=== PATIENT | female | born 1990 ===

== ENCOUNTER 2017-08-27 14:16 | Emergency (ER) | payer BC, OTHER ==
[2017-08-27 15:38] VITALS: BP 114/86; PULSE 71; RESP 16; TEMP 98.6; O2SAT 100
[2017-08-27] MEDS ORDERED: Sodium Chloride 0.9% 1,000 ML IV STA (17:34)
--- NOTE | 2017-08-27 17:41 | ED PDOC ---
HPI: Abdomen Time Seen by Provider: 08/27/17 17:09 Chief Complaint (Nursing): Abdominal Pain Chief Complaint (Provider): Abdominal Pain History Per: Patient History/Exam Limitations: no limitations Onset/Duration Of Symptoms: Days (x3) Current Symptoms Are (Timing): Still Present Location Of Pain/Discomfort: RLQ Associated Symptoms: denies: Fever, Nausea, Vomiting, Diarrhea, Constipation, Urinary Symptoms (dysuria, hematuria) Alleviating Factors: None Additional Complaint(s): Faisal De La Torre is a 27 year old female, with no past medical history, who presents to the emergency department complaining of RLQ abdominal pain onset for x3 days. Patient denies similar symptoms in the past. No alleviating factors. She denies any fever, nausea, vomit, constipation, diarrhea, dysuria, hematuria, or vaginal bleeding. No further medical complaints. PMD: None provided. Abnormal Vaginal Bleeding: No Past Medical History Reviewed: Historical Data, Nursing Documentation, Vital Signs Vital Signs: Last Vital Signs Temp 98.6 F 08/27/17 15:35 Pulse 71 08/27/17 15:35 Resp 16 08/27/17 15:35 BP 114/86 08/27/17 15:35 Pulse Ox 100 08/27/17 22:42 - Medical History PMH: No Chronic Diseases - Surgical History Surgical History: No Surg Hx - Family History Family History: States: Unknown Family Hx - Immunization History Hx Tetanus Toxoid Vaccination: No Hx Influenza Vaccination: No Hx Pneumococcal Vaccination: No - Home Medications Home Medications: Ambulatory Orders Medication Instructions Recorded [place] 06/13/13 Diazepam [Valium] 5 mg PO Q6H PRN #15 tab 06/13/13 Ibuprofen [Motrin] 400 mg PO TID #20 tab 06/13/13 - Allergies Allergies/Adverse Reactions: Allergies Allergy/AdvReac Type Severity Reaction Status Date / Time Penicillins Allergy SWELLING Verified 08/27/17 15:35 eggplant Allergy SWELLING Uncoded 08/27/17 15:35 Review of Systems ROS Statement: Except As Marked, All Systems Reviewed And Found Negative Constitutional: Negative for: Fever Gastrointestinal: Positive for: Abdominal Pain (RLQ). Negative for: Nausea, Vomiting, Diarrhea, Constipation Genitourinary Female: Negative for: Dysuria, Hematuria, Vaginal Bleeding Physical Exam - Reviewed Nursing Documentation Reviewed: Yes Vital Signs Reviewed: Yes - Physical Exam Appears: Positive for: Non-toxic Head Exam: Positive for: ATRAUMATIC, NORMAL INSPECTION, NORMOCEPHALIC Skin: Positive for: Normal Color, Warm, Dry Eye Exam: Positive for: Normal appearance Neck: Positive for: Painless ROM, Supple Cardiovascular/Chest: Positive for: Regular Rate, Rhythm. Negative for: Murmur Respiratory: Positive for: Normal Breath Sounds (clear auscultation b/l). Negative for: Respiratory Distress Gastrointestinal/Abdominal: Positive for: Tenderness (RLQ. McBurney's point tenderness). Negative for: Guarding, Rebound Back: Positive for: Normal Inspection. Negative for: L CVA Tenderness, R CVA Tenderness, Vertebral Tenderness Extremity: Positive for: Normal ROM. Negative for: Deformity, Swelling Neurologic/Psych: Positive for: Alert, Oriented - Laboratory Results Result Diagrams: 08/27/17 18:05 08/27/17 18:05 - ECG O2 Sat by Pulse Oximetry: 100 (RA) Pulse Ox Interpretation: Normal Medical Decision Making Medical Decision Making: Initial Impression: Abdominal pain, ovarian torsion, appendicitis. Initial Plan: --Abd & Pelvis IV Contrast [CT] --CMP --Urine dipstick --Urine --CBC w/ differential --Dilaudid 0.5 mg IVP --Sodium Chloride 1,000 ml IV 1,000 mls/hr --Urinalysis --Pelvis/Transvag US --reevaluation 19:00 -Patient will be signed out to Dr. Pickett, pending CT and US. Scribe Attestation: Documented by Obi Braswell, acting as a scribe for Bailey Vides MD Provider Scribe Attestation: All medical record entries made by the Scribe were at my direction and personally dictated by me. I have reviewed the chart and agree that the record accurately reflects my personal performance of the history, physical exam, medical decision making, and the department course for this patient. I have also personally directed, reviewed, and agree with the discharge instructions and disposition. Disposition - Clinical Impression Clinical Impression: Abdominal pain, Ovarian cyst - Disposition Referrals: [facility] [Outside] Disposition Time: 19:00 Condition: STABLE Additional Instructions: Follow up with your PCP in 2-3 days. Instructions: Ovarian Cyst (ED), Abdominal Pain (ED) Forms: [facility] ED School/Work Excuse Patient Signed Over To: Teri Pickett
[2017-08-27 18:07] LABS: SQUAMOUS EPITHIAL < 1 /hpf (0-5); URINE BACTERIA OCC (<OCC); URINE BILIRUBIN NEGATIVE (NEGATIVE); URINE BLOOD NEGATIVE (NEGATIVE); URINE CLARITY TURBID (Clear); URINE COLOR YELLOW (YELLOW); URINE GLUCOSE (UA) NEG (Normal); URINE LEUKOCYTE ESTERASE NEG Leu/uL (Negative); URINE NITRATE NEGATIVE (NEGATIVE); URINE PROTEIN NEGATIVE (NEGATIVE); URINE UROBILINOGEN 0.2-1.0 mg/dL (0.2-1.0)
[2017-08-27 18:15] LABS: BASO % 0.6 % (0.0-2.0); EOS # 0.2 K/uL (0.0-0.7); HEMOGLOBIN 13.1 g/dL (12.0-16.0); LYMPH % 25.3 % (20.0-40.0); MEAN CELL VOLUME 87.4 fl (81.0-99.0); MEAN CORPUSCULAR HEMOGLOBIN 29.4 pg (27.0-31.0); MEAN CORPUSCULAR HGB CONC 33.7 g/dL (33.0-37.0); MEAN PLATELET VOLUME 9.7 fl (7.2-11.7); MONO # 0.4 K/uL (0.0-0.8); MONO % 5.5 % (0.0-10.0); NEUT # 5.1 K/uL (1.8-7.0); NEUT % 65.6 % (50.0-75.0); NRBC % 0.1 % (0.0-0.0); RBC 4.43 Mil/uL (3.80-5.20); RED CELL DISTRIBUTION WIDTH 12.5 % (11.5-14.5); WHITE BLOOD COUNT 7.8 K/uL (4.8-10.8)
[2017-08-27] MEDS ORDERED: Fluconazole 150 MG TAB PO STA (18:20)
[2017-08-27 18:26] LABS: ALB/GLOB RATIO 1.3 (1.0-2.1); ALBUMIN 4.2 g/dL (3.5-5.0); ALT/SGPT 41 U/L (9-52); AST/SGOT 29 U/L (14-36); BLOOD UREA NITROGEN 16 mg/dl (7-17); CALCIUM 9.7 mg/dL (8.4-10.2); GFR AFRICAN-AMERICAN > 60; GFR NON-AFRICAN AMERICAN > 60
[2017-08-27] MEDS ORDERED: Iohexol 300 100 ML IJ ONE (19:03)
[2017-08-27] MEDS ORDERED: Sodium Chloride 0.9% 50 ML IV ONE (19:03)
--- NOTE | 2017-08-27 19:12 | ED PDOC ---
- Laboratory Results Result Diagrams: 08/27/17 18:05 08/27/17 18:05 - ECG O2 Sat by Pulse Oximetry: 100 (RA) - Progress Re-evaluation Time: 22:30 Condition: Re-examined, Improved Medical Decision Making Medical Decision Makin:00 -[facility]. Vides, pending CT abdomen and pelvic US 20:09 Abdomen/Pelvis CT FINDINGS: Lower thorax: There are at least four noncalcified nodules in the imaged right lung and one in the imaged left lung. The largest nodule in the imaged right lung measures 6.5 mm in maximal axial dimension (series 3, image 22). The left lower lobe nodule measures 4 mm in maximal axial dimension. Minimal bilateral lower lobe atelectasis. ABDOMEN: Liver: There are two low attenuation lesions in the lateral segment of the left liver lobe, the larger of which measures 2.7 cm in maximal dimension (series 601, image 23). Gallbladder and bile ducts: No acute findings. No radiopaque gallstones. Pancreas: No acute findings. Spleen: No acute findings. Adrenals: No acute findings. Kidneys and ureters: No acute findings. Stomach and bowel: There is a 3 x 1.5 x 2 cm lobulated, fluid attenuation structure in the anterior mid pelvis, just left of midline, that abuts and is possibly contiguous with a small bowel loop (series 3, images 112-120; series 601, images 32-41). There is no other evident abnormality of the involved segment of small bowel. No evident acute abnormality of the rest of the small bowel or of the stomach or colon. No bowel obstruction. Appendix: Normal appendix. PELVIS: Bladder: No evident acute abnormality. Reproductive: 18 mm peripherally enhancing, low attenuation right adnexal lesion (series 3, image 128). No evident acute abnormality of the uterus or left adnexa. ABDOMEN and PELVIS: Intraperitoneal space: No free intraperitoneal air. A small amount of free fluid in the posterior culde-sac and anterior right adnexa measures simple fluid attenuation and is physiologic in amount. Bones/joints: No acute findings. Soft tissues: Tiny, fat-containing umbilical hernia with no associated complications. Vasculature: No acute findings. Lymph nodes: Several borderline enlarged right lower quadrant mesenteric lymph nodes. IMPRESSION: 1. Normal appendix. 2. An 18 mm right adnexal lesion as described above is consistent with an ovarian corpus luteum. 3. Several borderline enlarged right lower quadrant mesenteric lymph nodes are nonspecific but raise the possibility of mesenteric adenitis. 4. A 3 x 1.5 x 2 cm lobulated, fluid attenuation structure associated with a small bowel loop in the mid pelvis as described above is nonspecific but differential diagnosis favors a benign cyst (e.g., enteric duplication cyst). Follow up per institution protocol. 5. Several noncalcified subcentimeter pulmonary nodules as described above. Follow up per institution protocol. 6. Two low attenuation liver lesions as described above, incompletely characterized. Follow up per institution protocol. 7. Additional non-acute findings as described above. 20:31 Pelvis US FINDINGS: Uterus/cervix: No acute findings. The endometrial stripe is normal in appearance and thickness with a maximal thickness of 7 mm. Right ovary: An approximately 17 mm right ovarian lesion (measured at the work station on image 34) is concordant with the corpus luteum seen on the comparison CT. The right ovary is otherwise normal in size and appearance. Doppler imaging demonstrates vascular flow in the right ovary. No right adnexal mass is visualized. Left ovary: The left ovary is normal in size and appearance. Doppler imaging demonstrates vascular flow in the left ovary. No left adnexal mass is visualized. Free fluid: The free fluid seen in the posterior cul-de-sac and right adnexa on the comparison CT is not appreciated on this examination. IMPRESSION: 1. No evident acute abnormality. 2. An approximately 17 mm right ovarian lesion is concordant with the corpus luteum seen on the comparison CT. Disposition Doctor Will See Patient In The: Office Counseled Patient/Family Regarding: Studies Performed, Diagnosis, Need For Followup - Clinical Impression Clinical Impression: Abdominal pain, Ovarian cyst - POA Present On Arrival: None - Disposition Referrals: [facility] [Outside] Disposition: Routine/Home Disposition Time: 22:41 Condition: GOOD Additional Instructions: Follow up with your PCP in 2-3 days. Instructions: Ovarian Cyst (ED), Abdominal Pain (ED)
--- NOTE | 2017-08-28 09:02 | CT ---
PROCEDURE: CT Abdomen and Pelvis with contrast HISTORY: RLQ pain COMPARISON: None. TECHNIQUE: Contrast dose: 90 mL Omnipaque 300 Radiation dose: Total exam DLP = 663.63 mGy-cm. This CT exam was performed using one or more of the following dose reduction techniques: Automated exposure control, adjustment of the mA and/or kV according to patient size, and/or use of iterative reconstruction technique. FINDINGS: LOWER THORAX: Multiple small nodules in the right lower lobe and right middle lobe common less than 6 mm. There is a solitary 7 mm nodule in the right lower lobe (series 5, image 22 close), for which followup noncontrast CT examination is advised in 6-12 months. There is a 4 mm pleural-based nodule in left lower lobe. There is no infiltrate or effusion. LIVER: Normal size, contour and attenuation. Ovoid low-attenuation lesion in the lateral segment left hepatic lobe, 1.7 x 2.5 cm. Similar low-attenuation lesion in the lateral segment left hepatic lobe, posterior aspect, 1.9 cm diameter. 6 mm low-density lesion in the medial segment of the left hepatic lobe. Nonspecific findings. Consider correlation with ultrasound. No biliary dilatation. Smooth contour. GALLBLADDER AND BILE DUCTS: Unremarkable. PANCREAS: Unremarkable. No gross lesion or ductal dilatation. SPLEEN: Unremarkable. ADRENALS: Unremarkable. No mass. KIDNEYS AND URETERS: Unremarkable. No hydronephrosis. No solid mass. VASCULATURE: Unremarkable. No aortic aneurysm. BOWEL: No bowel obstruction. No abnormal bowel loops. There is a loop of small bowel in the left parasagittal anterior pelvis (series 3, image 111 through 120 ) which likely represents interloop fluid related to some minimal generalized free intraperitoneal fluid seen elsewhere. The adjacent small bowel loops appear otherwise unremarkable. There is fluid noted in the right pericolic gutter and in the pelvis. No other abnormal bowel loops. APPENDIX: Normal appendix. PERITONEUM: Minimal ascites as described. No pneumoperitoneum. LYMPH NODES: Shotty subcentimeter mesenteric lymph nodes are identified common nonspecific. Consider mesenteric adenitis. No significantly enlarged pelvic or retroperitoneal lymph nodes. BLADDER: Unremarkable. REPRODUCTIVE: UnremarkableUnremarkable uterus. In the right ovary, there is a 1.6 cm irregularly-shaped peripherally enhancing structure consistent with a ruptured or involuting cyst. . BONES: No acute fracture. OTHER FINDINGS: None. IMPRESSION: No acute abnormality. Possible rupture or involuting right ovarian cyst. Small amount of ascites. Probable interloop fluid collection in the anterior pelvis as described, adjacent to several loops of small bowel. No bowel obstruction. Several nonspecific low-density lesions in the left lobe of the liver. Correlate with ultrasound examination. Shotty subcentimeter mesenteric lymph nodes within the small bowel mesenteric common nonspecific. Consider mesenteric adenitis. Multiple small bilateral nodules of the lung bases, only 1 of which is large enough to warrant follow-up. This is a right lower lobe 7 mm nodule. Followup noncontrast chest CT examination is advised 6-12 months. Preliminary interpretation of this examination was reported by [facility] at 8:09 p.m. on 08/27/2017. There is concurrence of this report with the preliminary interpretation.
--- NOTE | 2017-08-28 13:49 | US ---
HISTORY: RLQ pain. Menstrual status: LMP 08/09/2016. Cycles are regular. COMPARISON: None available. TECHNIQUE: Transabdominal only. Real-time technique with 2D, duplex and color Doppler FINDINGS: UTERUS: Measures 3.2 x 4.1 x 8.3 cm. Normal in size and appearance. No fibroid or other mass lesion seen. ENDOMETRIUM: Measures 6.6 mm in diameter. No ultrasound findings to suggest gestational sac, fluid, debris, mass or polyp or other pathologic process within the endometrium. CERVIX: No cervical abnormality identified. RIGHT OVARY: Measures 2.7 x 3.7 cm. No solid mass. Normal flow. LEFT OVARY: Measures 1.6 x 2.8 cm. No solid mass. Normal flow. FREE FLUID: No significant free fluid noted. OTHER FINDINGS: None. IMPRESSION: Unremarkable pelvic ultrasound.
== END 2017-08-27 23:00 | disposition home or self-care (01) ==
LOC: H.ER 14:16
DX: N83.201 Unspecified ovarian cyst, right side (principal); K76.9 Liver disease, unspecified; Z88.0 Allergy status to penicillin
CPT/HCPCS: 74177; 76830; 76856; 80053; 81003; 81025; 85025; 96374; 99283; J1170; J7040; Q9967